=== PATIENT | male | born 1990 | race Hispanic/Latino ===

== ENCOUNTER 2017-11-27 08:57 | Emergency (ER) | payer OTHER ==
[~2017-11-27] VITALS: Ht 175.3 cm; Wt 117.9 kg
[2017-11-27] MEDS ORDERED: MORPHINE SULFATE INJ 4 MG/ML INJ IV STA (09:25)
[2017-11-27] MEDS ORDERED: SODIUM CHLORIDE 0.9% 1000ML 1,000 ML IV STA (09:25)
[2017-11-27] MEDS ORDERED: ONDANSETRON HCL INJ 2 MG/ML VIAL IV STA (09:25)
[2017-11-27 10:13] LABS: CLARITY,URINE SL CLOUDY (CLEAR); COLOR,URINE YELLOW (YELLOW)
[2017-11-27 10:14] LABS: BILIRUBIN,URINE NEGATIVE (NEGATIVE); KETONES,URINE TRACE (NEGATIVE); LEUKOCYTE ESTERASE ,URINE NEGATIVE (NEGATIVE); NITRITE,URINE NEGATIVE (NEGATIVE); PROTEIN,URINE DIPSTICK NEGATIVE (NEGATIVE); URINE UROBILINOGEN 0.2 mg/dL (0.2 - 1)
[2017-11-27 10:41] LABS: EPITHELIAL CELLS,URINE RARE /LPF
[2017-11-27 11:45] LABS: BASOPHILS % 0.2 % (0.0-1.0); EOSINOPHILS # (AUTO) 0.1 (0.0-0.4); EOSINOPHILS % 0.7 % (0.0-6.0); HEMATOCRIT 44.3 % (38.2-49.6); HEMOGLOBIN 15.9 g/dL (14.0-18.0); LYMPHOCYTES # (AUTO) 1.1 (1.0-3.2); LYMPHOCYTES % 12.2 % (18.0-39.1); MEAN CORPUSCULAR HEMOGLOBIN 28.2 pg (28-32); MEAN CORPUSCULAR HGB CONC 35.9 g/dL (31-35); MEAN CORPUSCULAR VOLUME 78.7 fL (81-99); MONOCYTES # (AUTO) 0.5 (0.2-0.8); MONOCYTES % 5.3 % (4.4-11.3); NEUTROPHILS # (AUTO) 7.2 (2.1-6.9); NEUTROPHILS % 80.9 % (38.7-80.0); PLATELET COUNT 214 x10e3/uL (140-360); RED BLOOD COUNT 5.63 x10e6/uL (4.3-5.7); RED CELL DISTRIBUTION WIDTH 12.6 % (11.7-14.4)
[2017-11-27 12:03] LABS: ALANINE AMINOTRANSFERASE 53 IU/L (0-55); ALBUMIN 3.8 g/dL (3.5-5.0); ALBUMIN/GLOBULIN RATIO 0.9 (0.8-2.0); ALKALINE PHOSPHATASE 74 IU/L (40-150); AMYLASE 38 U/L (25-125); ANION GAP 16.5 mmol/L (8-16); BLOOD UREA NITROGEN 12 mg/dL (7-26); BUN/CREATININE RATIO 13 (6-25); CALCIUM 8.9 mg/dL (8.4-10.2); CARBON DIOXIDE 24 mmol/L (22-29); CHLORIDE 97 mmol/L (98-107); CREATININE, SERUM 0.89 mg/dL (0.72-1.25); EST GLOMERULAR FILTRATION RATE > 60 ML/MIN (60-); GLUCOSE 283 mg/dL (74-118); LIPASE 22 U/L (8-78); MAGNESIUM 1.4 MG/DL (1.3-2.1); POTASSIUM 3.5 mmol/L (3.5-5.1); SODIUM 134 mmol/L (136-145)
[2017-11-27 13:09] VITALS: BP 134/77
== END 2017-11-27 13:05 | disposition home or self-care (01) ==
LOC: ER 08:57
DX: R10.84 Generalized abdominal pain (principal); R11.2 Nausea with vomiting, unspecified; R19.7 Diarrhea, unspecified; A08.4 Viral intestinal infection, unspecified; K52.9 Noninfective gastroenteritis and colitis, unspecified; E87.1 Hypo-osmolality and hyponatremia
CPT/HCPCS: 36415; 80053; 81001; 82150; 83690; 83735; 85025; 99283; J2270; J2405; J7030

== ENCOUNTER 2018-05-05 05:02 | Emergency (ER) | payer OTHER ==
[~2018-05-05] VITALS: Ht 175.3 cm; Wt 117.9 kg
--- OUTSIDE RECORDS SUMMARY | 2018-05-05 05:05 | XMS REPORT | Continuity of Care Document ---
Author Author [facility] Interface Address Unknown Phone Unavailable Problems Problem Status Onset Date Classification Date Reported Comments Source Medications Medication Details Route Status Patient Instructions Ordering Provider Order Date Source Allergies, Adverse Reactions, Alerts Substance Category Reaction Severity Reaction type Status Date Reported Comments Source Immunizations Immunization Date Given Site Status Last Updated Comments Source Results Order Name Results Value Reference Range Date Interpretation Comments Source Automated blood basophil count (count/volume) Automated blood basophil count (count/volume) 0.0 0.0 - 0.1 11/27/2017 [facility] Automated blood basophil count as percentage of total leukocytes Automated blood basophil count as percentage of total leukocytes 0.2 0.0 - 1.0 11/27/2017 [facility] Automated blood eosinophil count Automated blood eosinophil count 0.1 0.0 - 0.4 11/27/2017 [facility] Automated blood eosinophil count as percentage of total leukocytes Automated blood eosinophil count as percentage of total leukocytes 0.7 0.0 - 6.0 11/27/2017 [facility] Automated blood hematocrit (volume fraction) Automated blood hematocrit (volume fraction) 44.3 38.2 - 49.6 11/27/2017 [facility] Automated blood lymphocyte count as percentage ot total leukocytes Automated blood lymphocyte count as percentage ot total leukocytes 12.2 18.0 - 39.1 11/27/2017 [facility] Automated blood monocyte count as percentage of total leukocytes Automated blood monocyte count as percentage of total leukocytes 5.3 4.4 - 11.3 11/27/2017 [facility] Automated blood neutrophil count Automated blood neutrophil count 7.2 2.1 - 6.9 11/27/2017 [facility] Automated blood platelet count (count/volume) Automated blood platelet count (count/volume) 214 140 - 360 11/27/2017 [facility] Automated blood segmented neutrophil count as percentage of total leukocytes Automated blood segmented neutrophil count as percentage of total leukocytes 80.9 38.7 - 80.0 11/27/2017 [facility] Automated erythrocyte mean corpuscular hemoglobin (mass per erythrocyte) Automated erythrocyte mean corpuscular hemoglobin (mass per erythrocyte) 28.2 28 - 32 11/27/2017 [facility] Automated erythrocyte mean corpuscular hemoglobin concentration measurement (mass/volume) Automated erythrocyte mean corpuscular hemoglobin concentration measurement (mass/volume) 35.9 31 - 35 11/27/2017 [facility] Automated erythrocyte mean corpuscular volume Automated erythrocyte mean corpuscular volume 78.7 81 - 99 11/27/2017 [facility] Blood erythrocytes automated count (number/volume) Blood erythrocytes automated count (number/volume) 5.63 4.3 - 5.7 11/27/2017 [facility] Blood hemoglobin measurement (moles/volume) Blood hemoglobin measurement (moles/volume) 15.9 14.0 - 18.0 11/27/2017 [facility] Blood leukocytes automated count (number/volume) Blood leukocytes automated count (number/volume) 8.93 4.8 - 10.8 11/27/2017 [facility] Blood lymphocytes count (number/volume) Blood lymphocytes count (number/volume) 1.1 1.0 - 3.2 11/27/2017 [facility] Blood monocytes automated count (number/volume) Blood monocytes automated count (number/volume) 0.5 0.2 - 0.8 11/27/2017 [facility] Estimated glomerular filtration rate (GFR) determination Estimated glomerular filtration rate (GFR) determination null 60 11/27/2017 [facility] Glucose measurement Glucose measurement 283 74 - 118 11/27/2017 [facility] Plasma globulin measurement (mass/volume) Plasma globulin measurement (mass/volume) 4.1 2.3 - 3.5 11/27/2017 [facility] Serum or plasma alanine aminotransferase measurement (enzymatic activity/volume) Serum or plasma alanine aminotransferase measurement (enzymatic activity/volume) 53 0 - 55 11/27/2017 [facility] Serum or plasma albumin measurement (mass/volume) Serum or plasma albumin measurement (mass/volume) 3.8 3.5 - 5.0 11/27/2017 [facility] Serum or plasma albumin/globulin mass ratio Serum or plasma albumin/globulin mass ratio 0.9 0.8 - 2.0 11/27/2017 [facility] Serum or plasma alkaline phosphatase measurement (enzymatic activity/volume) Serum or plasma alkaline phosphatase measurement (enzymatic activity/volume) 74 40 - 150 11/27/2017 [facility] Serum or plasma amylase measurement (enzymatic activity/volume) Serum or plasma amylase measurement (enzymatic activity/volume) 38 25 - 125 11/27/2017 [facility] Serum or plasma anion gap Serum or plasma anion gap 16.5 8 - 16 11/27/2017 [facility] Serum or plasma calcium measurement (mass/volume) Serum or plasma calcium measurement (mass/volume) 8.9 8.4 - 10.2 11/27/2017 [facility] Serum or plasma carbon dioxide, total measurement (moles/volume) Serum or plasma carbon dioxide, total measurement (moles/volume) 24 22 - 29 11/27/2017 [facility] Serum or plasma chloride measurement (moles/volume) Serum or plasma chloride measurement (moles/volume) 97 98 - 107 11/27/2017 [facility] Serum or plasma creatinine measurement (mass/volume) Serum or plasma creatinine measurement (mass/volume) 0.89 0.72 - 1.25 11/27/2017 [facility] Serum or plasma lipase measurement (enzymatic activity/volume) Serum or plasma lipase measurement (enzymatic activity/volume) 22 8 - 78 11/27/2017 [facility] Serum or plasma magnesium measurement (mass/volume) Serum or plasma magnesium measurement (mass/volume) 1.4 1.3 - 2.1 11/27/2017 [facility] Serum or plasma potassium measurement (moles/volume) Serum or plasma potassium measurement (moles/volume) 3.5 3.5 - 5.1 11/27/2017 [facility] Serum or plasma protein measurement (mass/volume) Serum or plasma protein measurement (mass/volume) 7.9 6.5 - 8.1 11/27/2017 [facility] Serum or plasma sodium measurement (moles/volume) Serum or plasma sodium measurement (moles/volume) 134 136 - 145 11/27/2017 [facility] Serum or plasma total bilirubin measurement (mass/volume) Serum or plasma total bilirubin measurement (mass/volume) 1.3 0.2 - 1.2 11/27/2017 [facility] Serum or plasma urea nitrogen measurement (mass/volume) Serum or plasma urea nitrogen measurement (mass/volume) 12 7 - 26 11/27/2017 [facility] Serum or plasma urea nitrogen/creatinine mass ratio Serum or plasma urea nitrogen/creatinine mass ratio 13 6 - 25 11/27/2017 [facility] Red Cell Distribution Width 12.6 11.7 - 14.4 11/27/2017 [facility] IM GRANULOCYTES % 0.7 0.0 - 1.0 11/27/2017 [facility] Absolute Immature Granulocyte (auto 0.06 0 - 0.1 11/27/2017 [facility] Aspartate Amino Transf (AST/SGOT) 21 5 - 34 11/27/2017 [facility] Automated urine sediment leukocyte count by microscopy (number/high power field) Automated urine sediment leukocyte count by microscopy (number/high power field) NONE 0 - 5 11/27/2017 [facility] Bacteria detection in urine sediment by light microscopy Bacteria detection in urine sediment by light microscopy NONE NONE 11/27/2017 [facility] Epithelial cells detection in urine sediment by light microscopy Epithelial cells detection in urine sediment by light microscopy RARE NONE 11/27/2017 [facility] Erythrocytes detection in urine sediment by light microscopy Erythrocytes detection in urine sediment by light microscopy NONE 0 - 5 11/27/2017 [facility] Specific gravity of Urine by Test strip Specific gravity of Urine by Test strip 1.025 1.010 - 1.025 11/27/2017 [facility] Urine clarity Urine clarity SL CLOUDY CLEAR 11/27/2017 [facility] Urine color determination Urine color determination YELLOW YELLOW 11/27/2017 [facility] Urine erythrocytes detection Urine erythrocytes detection NEGATIVE NEGATIVE 11/27/2017 [facility] Urine glucose detection Urine glucose detection 3+ NEGATIVE 11/27/2017 [facility] Urine ketones detection by automated test strip Urine ketones detection by automated test strip TRACE NEGATIVE 11/27/2017 [facility] Urine leukocyte esterase detection by dipstick Urine leukocyte esterase detection by dipstick NEGATIVE NEGATIVE 11/27/2017 [facility] Urine nitrite detection Urine nitrite detection NEGATIVE NEGATIVE 11/27/2017 [facility] Urine pH measurement by automated test strip Urine pH measurement by automated test strip 5 5 - 7 11/27/2017 [facility] Urine protein measurement by test strip (mass/volume) Urine protein measurement by test strip (mass/volume) NEGATIVE NEGATIVE 11/27/2017 [facility] Urine total bilirubin measurement (mass/volume) Urine total bilirubin measurement (mass/volume) NEGATIVE NEGATIVE 11/27/2017 [facility] Urine urobilinogen measurement by test strip (mass/volume) Urine urobilinogen measurement by test strip (mass/volume) 0.2 0.2 - 1 11/27/2017 [facility] Vital Signs Vital Sign Value Date Comments Source Encounters Location Location Details Encounter Type Encounter Number Reason For Visit Attending Provider ADM Date DC Date Status Source Departed Emergency Room [id number] KARYNA ARENAS MD 11/27/2017 11/27/2017 [facility] Procedures Procedure Code Date Perfomer Comments Source
--- OUTSIDE RECORDS SUMMARY | 2018-05-05 05:05 | XMS REPORT | Summary of Care ---
Author Author PRIMITIVO MAZA D.O. Organization Unknown Address Unknown Phone Unavailable Care Team Providers Care Machine Tracer Name Role Phone PRIMITIVO MAZA D.O. 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 Quantity: 90 YEH D.O., PRIMITIVO * Start : 12-Feb-2018 Active GlipiZIDE ER 10 MG Oral Tablet Extended Release 24 Hour TAKE 1 TABLET DAILY DIRECTED * Quantity: 90 Refills: 1 YEH D.O., PRIMITIVO * Start : 12-Feb-2018 Active MetFORMIN HCl ER (OSM) 1000 MG Oral Tablet Extended Release 24 Hour Take one tablet by mouth BID. * Quantity: 180 Refills: 1 YEH D.O., PRIMITIVO * Start : 12-Feb-2018 Active Proventil HFA 108 (90 Base) MCG/ACT Inhalation Aerosol Solution INHALE 2 PUFFS EVERY 4 HOURS NEEDED * Quantity: 1 Refills: 5 YEH D.O.PRIMITIVO * Start : 12-Feb-2018 Active 6.7 GM Inhaler Advair Diskus 100-50 MCG/DOSE Inhalation Aerosol Powder Breath Activated INHALE 1 PUFF EVERY 12 HOURS. * Quantity: 1 Refills: 5 YEH D.O., PRIMITIVO * Start : 12-Feb-2018 Active 14 Each Pack Clotrimazole-Betamethasone 1-0.05 % External Lotion APPLY AND RUB IN A THIN FILM TO AFFECTED AREAS TWICE DAILY.(AM AND PM). * Quantity: 1 Refills: 5 YEH D.O., CLARY-MAX * Start : 12-Feb-2018 Active 30 ML Bottle Tradjenta 5 MG Oral Tablet TAKE 1 TABLET DAILY. * Quantity: 90 Refills: 1 YEH D.O., CLARY-MAX * Start : 12-Feb-2018 Active Accu-Chek Multiclix Lancets USE 3-4 TIMES A DAY * Quantity: 1 Refills: 5 YEH D.O., CLARY-MAX * Start : 12-Feb-2018 Active 102 Unit Box Accu-Chek Guide In Vitro Strip TEST 3 TIMES DAILY. * Quantity: 1 Refills: 5 YEH D.O., CLARY-MAX * Start : 12-Feb-2018 Active 100 Strip Box Allergies and Adverse Reactions Name Dates Details No Known Drug Allergies (Allergy) Status: Active Past Medical History Name Dates Details History of diabetes mellitus (V12.29, Z86.39) Status: Resolved History of vision disorder (V12.49, Z86.69) Status: Resolved Procedures Procedure Dates Details [QH] LIPID PANEL WITH REFLEX TO DIRECT LDL Date: 12-Feb-2018 Immunization Name Dates Details Immunizations not documented Family History Name Dates Details Family history of asthma (V17.5, Z82.5) Status: Active Name Dates Details Family history of stroke (V17.1, Z82.3) Status: Active Family history of essential hypertension (V17.49, Z82.49) Status: Active Social History Name Dates Details - Status: Name Dates Details Never smoker Vital Signs Date Test Result Details [id number] BP Systolic 106 mm[Hg] Status: Comments: Location: LUE; Position: Sitting BP Diastolic 71 mm[Hg] Status: Comments: Location: LUE; Position: Sitting Weight 250 lb Status: Body Mass Index Calculated 36.92 kg/m2 Status: Body Surface Area Calculated 2.27 m2 Status: Height 69 in Status: Temperature 97.9 f Status: Comments: Method: Temporal Respiration Rate 16 /min Status: Heart Rate 75 /min Status: Results Date Description Value Details [id number] [O] Hemoglobin A1c (in office) HEMOGLOBIN A1c 6.7% (Abnormal) Plan of Care Name Dates Details Planned Observations Planned Goals not documented Planned Encounters Appointment; ROSEMARY ADAN RD On: 09-Apr-2018 8:00 Interventions Provided Labs/Procedures/Imaging* [O] Hemoglobin A1c (in office); Done: 19 Mar 2018 Instructions* Patient Specific Education Given; Done: 19 Mar 2018 Plan* DM-II - Improved. A1C from 9.1 to 6.7. Continue Metformin 1000 mg BID. Decrease Glimepiride from 10 to 5 mg. Continue ASA 81 mg PO QDaily. Referred Pt to diabetes. Discussed need for ophthamology exam * HTN - stable. Continue Lisinopril * Asthma - stable. Continue Advair. Discussed that his breath sounds were good today and that he reports no exacerbations recently, if it is expensive, OK to hold off and use ProAir. Discussed starting Claritin PO QDaily during fall/winter. Refilled ProAir. * Pt declines flu shot * A1C obtained in office and reviewed * Follow-up in 3 months, sooner if needed Instructions Name Dates Details Instructions not documented Encounters Appointment; PRIMITIVO MAZA D.O. Encounter Diagnosis: Problem not documented On: 12-Feb-2018 9:30 Appointment; PRIMITIVO MAZA D.O. Encounter Diagnosis: Problem not documented On: 19-Mar-2018 10:00
[2018-05-05] MEDS ORDERED: ACETAMINOPHEN 325 MG TAB PO ONE (05:30)
== END 2018-05-05 06:00 | disposition home or self-care (01) ==
LOC: FSED 05:02
DX: H65.01 Acute serous otitis media, right ear (principal); J00 Acute nasopharyngitis [common cold]; I10 Essential (primary) hypertension; E11.9 Type 2 diabetes mellitus without complications; Z83.3 Family history of diabetes mellitus; Z82.49 Family history of ischemic heart disease and other diseases of the circulatory system
CPT/HCPCS: 99282